=== PATIENT | male | born 1950 | race Caucasian/White ===

== ENCOUNTER 2017-04-26 18:41 | Emergency (ER) | payer OTHER ==
[~2017-04-26] VITALS: Ht 175.3 cm; Wt 86.2 kg
[2017-04-26] MEDS ORDERED: COZAAR25 MG (19:02)
== END 2017-04-26 22:45 | disposition home or self-care (01) ==
LOC: ER 18:41
DX: K52.9 Noninfective gastroenteritis and colitis, unspecified (principal); R10.13 Epigastric pain

== ENCOUNTER 2020-10-14 00:23 | Emergency (ER) | payer OTHER ==
[~2020-10-14] VITALS: Ht 172.7 cm; Wt 83.9 kg
[~2020-10-14 00:23] MED LIST: COZAAR25 MG
[2020-10-14] MEDS ORDERED: NORFLEX100MG PO (02:14)
[2020-10-14] MEDS ORDERED: ACETAMINOPHEN650 M2 PO (02:14)
== END 2020-10-14 02:37 | disposition home or self-care (01) ==
LOC: ER 00:23
DX: M62.830 Muscle spasm of back (principal); M54.5 Low back pain